=== PATIENT | male | born 1995 | race Caucasian/White ===

== ENCOUNTER 2019-07-04 19:49 | Inpatient (IN) | payer OTHER ==
[~2019-07-04] VITALS: Ht 175.3 cm; Wt 90.6 kg
[2019-07-04 20:54] LABS: HEMATOCRIT 44.3 % (42.0-52.0); HEMOGLOBIN 15.5 g/dl (13.5-17.5); MEAN CORPUSCULAR HEMOGLOBIN 31.1 pg (27.0-33.0); PLATELET COUNT, AUTOMATED 297 10^3/uL (150-450); RED BLOOD COUNT 4.98 10^6/uL (4.30-6.10); WHITE BLOOD COUNT 6.6 10^3/uL (4.0-10.0)
[2019-07-04 21:37] LABS: ACETAMINOPHEN LEVEL < 2.0 UG/ML (10.0-30.0); ALBUMIN 4.1 GM/DL (3.2-5.2); ALT/SGPT 36 U/L (12-78); BILIRUBIN,DIRECT 0.1 MG/DL (0.0-0.2); BILIRUBIN,TOTAL 0.4 MG/DL (0.2-1.0); BLOOD UREA NITROGEN 18 MG/DL (7-18); CALCIUM LEVEL 8.5 MG/DL (8.5-10.1); CARBON DIOXIDE LEVEL 25 MEQ/L (21-32); CHLORIDE LEVEL 107 MEQ/L (98-107); CREATININE FOR GFR 1.11 MG/DL (0.70-1.30); ETHYL ALCOHOL (ETHANOL) < 0.003 % (0.000-0.010); GLOMERULAR FILTRATION RATE > 60.0 (>60); GLUCOSE, FASTING 96 MG/DL (70-100); POTASSIUM SERUM 3.9 MEQ/L (3.5-5.1); SALICYLATE LEVEL < 1.7 MG/DL (5.0-30.0); SODIUM LEVEL 139 MEQ/L (136-145); TOTAL PROTEIN 7.2 GM/DL (6.4-8.2)
[2019-07-04 21:41] LABS: AMPHETAMINES LEVEL URINE NEGATIVE (NEGATIVE); BARBITURATES URINE NEGATIVE (NEGATIVE); BENZODIAZEPINES URINE NEGATIVE (NEGATIVE); CANNABINOIDS URINE NEGATIVE (NEGATIVE); COCAINE METABOLITE URINE NEGATIVE (NEGATIVE); METHADONE URINE NEGATIVE (NEGATIVE); OPIATES URINE NEGATIVE (NEGATIVE); PHENCYCLIDINE URINE NEGATIVE (NEGATIVE)
[2019-07-05] MEDS ORDERED: MOM 30ML SUSPENSION UDC PO PRN (01:00)
[2019-07-05] MEDS ORDERED: OLANZapine ORAL DISINTEGRATING TAB 5MG PO PRN (01:00)
[2019-07-05] MEDS ORDERED: MAALOX 30 ML SUSP *UDC PO PRN (01:00)
[2019-07-05] MEDS ORDERED: LORazepam 2 MG TAB PO PRN (01:00)
[2019-07-05] MEDS ORDERED: traZODone 50 MG TAB PO PRN (01:00)
[2019-07-05 01:34] VITALS: BP 129/77
[2019-07-05] MEDS: THIAMINE 100 MG TAB PO SCH ×3 (02:01→21:38)
[2019-07-05 06:56] VITALS: BP 129/63
[2019-07-05] MEDS: MULTIVITAMINS/MINERALS THERAP 1 TAB PO SCH (09:30)
[2019-07-05] MEDS: FOLIC ACID 1 MG TAB PO SCH (09:30)
[2019-07-05] MEDS: NICOTINE 14 MG/24 HR TRANSDERMAL TD SCH (09:31)
--- NOTE | 2019-07-05 09:44 | MHHPEPDOC ---
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 The patient self-presented he had reportedly presented to [place] in order to be deployed, however, it appears he had second thoughts about this and reported having a depressed mood and hopelessness upon presentation to our emergency room. When I met with the patient he was unable to describe any significant symptoms of vague "depression" and "nightmares". He has a history of having a friend who committed suicide several months ago, that had been a stressor, but he is unable to engage in a more comprehensive review of symptoms as it appears that he ge nerally states "depression" to the majority of my questions. Review Of Systems Depression: As above. Anxiety: The patient denies any excessive worry associated with physical symptoms. They deny any experience of discreet panic in the past. Ann: The patient denies any episodes of euphoria/dysphoria associated with decreased need for sleep, hedonism, talkatively or impulsivity lasting longer th an 5 days. Psychotic: The patient denies any experiences of auditory or visual hallucinations. They deny any episodes of paranoia or delusional thinking in the past Trauma: The patient denies any traumatic events associated with nightmares or intrusive thoughts. Borderline: Not screened. Past Psychiatric History Denies any history of suicide attempts. Allergies Please see below. Family Psychiatric History Reportedly the patient's father had substance abuse problems and by suicide. 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 He has never been deployed recently transferred here in order to deploy at his own request. The patient has been in the [employer] for 18 months with no reported cumulative actions against him. He has known his current for 6 months romantically, but have known of each other in general for 6 years. He has no legal history. Substance Abuse History The patient denies any excessive alcohol use, tobacco or illicit drug use, denies history of substance use treatment. Medical History Patient has no significant past medical history. Mental Status Examination General: Well dressed with good hygiene Speech: Spontaneous and fluid Thought processes: Linear and logical MSK: Smooth and coordinated gait, no signs of tremors or involuntary orofacial movements Thought content: Generally focused on not being deployed Abstract reasoning, and computation: Intact Description of associations: Intact Description of abnormal or psychotic thoughts: Denies any suicidal or homicidal ideation. Denies any auditory or visual hallucinations. Does not appear to be responding to internal stimuli. Does not appear to be endorsing any bizarre or paranoid ideation. Judgment: Limited change. Insight: Limited, likely chronic. Orientation: Alert and orientated 3 Cognition: Grossly normal Recent and remote memory: Intact Attention span and concentration: Intact Fund of knowledge: Adequate Mood: "okay" Affect: Reactive Diagnoses Unspecified depressive disorder Adjustment versus fabrication Strong concerned for malingering Assessment and Plan Unspecified depressive disorder: Patient was discussed with the risks, benefits and potential side effects of medication as well as alternative options, patient elected for sertraline 25 mg we will start, observation will elucidate whether adjustment versus fabrication. Concerned for malingering: Patient's interview and information are concerning for an individual trying to avoid being deployed. We will continue to monitor to determine if reported behavior and observed behavior are consistent or i nconsistent. Disposition The patient will be continued on a voluntary admission at this time for further treatment of his depression and monitoring of safety. Problem List 1. Risk for suicide. 2. Depression. 3. Ineffective coping. Initial Treatment Plan 1. Patient was admitted on a 9.13 legal status. 2. Complete history was obtained. 3. With patients permission, family will be contacted and database will be expanded. 4. Patients medication regimen will be reviewed and changed accordingly. 5. Patient will be provided with protected environment. 6. Patient will be treated with individual, group, and milieu therapies. 7. Patient will receive supportive psych-education. 8. Discharge planning will commence immediately. 9. Outpatient follow-up treatment will be strongly recommended. 10. The initial treatment plan will focus initially on: Estimated Length Of Stay 3 days. Time Spent 70 minutes with greater than 50% of time on counseling/coordination of care. Vital Signs Vital Signs Date Time Temp Pulse Resp B/P (MAP) Pulse Ox O2 Delivery O2 Flow Rate FiO2 07/05/19 06:56 98.1 102 12 129/63 (85) 07/04/19 23:55 98 Room Air Laboratory Data 24H Labs Laboratory Tests 2 07/04/19 20:38: Nucleated Red Blood Cells % (auto) 0.0, Anion Gap 7L, Glomerular Filtration Rate > 60.0, Calcium Level 8.5, Total Bilirubin 0.4, Direct Bilirubin 0.1, Aspartate Amino Transf (AST/SGOT) 31, Alanine Aminotransferase (ALT/SGPT) 36, Alkaline Phosphatase 73, Total Protein 7.2, Albumin 4.1, Albumin/Globulin Ratio 1.32, Thyroid Stimulating Hormone (TSH) 2.220, Salicylates Level < 1.7L, Urine Opiates Screen NEGATIVE, Urine Methadone Screen NEGATIVE, Acetaminophen Level < 2.0L, Urine Barbiturates Screen NEGATIVE, Urine Phencyclidine Screen NEGATIVE, Urine Amphetamines Screen NEGATIVE, Urine Benzodiazepines Screen NEGATIVE, Urine Cocaine Metabolite Screen NEGATIVE, Urine Cannabinoids Screen NEGATIVE, Ethyl Alcohol Level < 0.003 CBC/BMP Laboratory Tests 07/04/19 20:38 Medications No Active Prescriptions or Reported Meds Allergies Coded Allergies: No Known Allergies (Unverified , 07/04/19) NAHED HENSON DO Jul 05, 2019 09:44
[2019-07-05] MEDS ORDERED: SERTRALINE HCL 25 MG TABLET PO ONE (10:00)
[2019-07-05 16:00] VITALS: BP 155/65
[2019-07-05 20:58] VITALS: BP 147/80
[2019-07-05 20:59] VITALS: BP 147/80
--- NOTE | 2019-07-05 21:47 | HPE ---
DATE OF ADMISSION: 07/05/2019 TIME: 6:00 p.m. CHIEF COMPLAINT: Medical evaluation of inpatient psychiatric patient. 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 He is an active smoker, otherwise he has no significant medical history. At this point and time, he is only complaining of dyspnea at times. When we checked his oxygen saturation, he was 99% on room air. ALLERGIES: No known drug allergies. Medication list has been reviewed in the electronic record. PAST MEDICAL HISTORY: Nil. SURGICAL HISTORY: Notable for wisdom teeth extraction. SOCIAL HISTORY: He is , smokes cigarettes, and uses alcohol. 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 would be his surrogate medical decision maker. He is a [employer]. FAMILY HISTORY: Notable for diabetes and gout in his mom. REVIEW OF SYSTEMS: 12 systems reviewed, patient is otherwise negative except what is mentioned in history of present illness (HPI). On examination, patient's temperature is 99.2, pulse is 89, respiratory rate 18, blood pressure 125/65. General: Mr. Vergara is a healthy appearing gentleman who appears in no acute distress. His skin is intact and warm to touch. Head is atraumatic, normocephalic. Pupils are equal, round, and reactive to light. Oropharynx is clear without exudate, erythema, or thrush. Neck is supple. Lung sounds are present bilaterally without wheezes, rales, or rhonchi. Heart is S1, S2, no murmurs, rubs, or gallops. Abdomen is soft, nontender, nondistended with active bowel sounds. Extremities without any cyanosis, clubbing, or edema. RELEVANT LABORATORIES: White count 6.6, hemoglobin 15.5, hematocrit 44.3, platelet count 297, sodium 139, potassium 3.9, chloride 107, bicarbonate 25, BUN 18, creatinine 1.1, glucose 96, calcium 8.5, AST 31, ALT 73, alkaline phosphatase 73, albumin 4.1, TSH 2.2. Salicylates are less than 1.7. Acetaminophen is less than 2. Alcohol level less than 0.003. Urine drug screen is negative. IMPRESSION: 1. Normal male physical exam. 2. Shortness of breath. 3. Tobacco use. RECOMMENDATIONS: I will get a chest x-ray, two views, to further investigate his complaints of dyspnea. Should it be negative for any structural lung disease then I would recommend he get a pulmonary function test in the outpatient setting, as well as I have spoken to him about ceasing tobacco use. Psychiatric treatment per the psychiatric service. Thank you for allowing us to involve ourselves in the care of this patient. I will sign off.
[2019-07-06 06:38] VITALS: BP 128/62
[2019-07-06 06:39] VITALS: BP 128/62
--- NOTE | 2019-07-06 07:52 | REP ---
PA and lateral chest: There are no comparisons. The lung wick are clear. The cardiac size is normal. The scotty, mediastinum, and skeletal structures are unremarkable. Impression: Negative PA and lateral chest. Electronically Signed by Poncho Em MD 07/06/2019 07:44 A
--- NOTE | 2019-07-06 08:49 | MHIPNPDOC ---
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 The patient self-presented he had reportedly presented to [facility] in order to be deployed, however, it appears he had second thoughts about this and reported having a depressed mood and hopelessness upon presentation to our emergency room. When I met with the patient he was unable to describe any significant symptoms of vague "depression" and "nightmares". He has a history of having a friend who committed suicide several months ago, that had been a stressor, but he is unable to engage in a more comprehensive review of symptoms as it appears that he generally states "depression" to the majority of my questions. Interval History Narrative: The patient is met within the group setting. He reports doing much better, had a good call with his chain of command. Affective: The patient denies any depressive symptoms at this time. Psychotic: The patient denies any symptoms at this time. Anxiety: The patient reports much improved situational anxiety. Eating and sleeping behaviors: Within normal limits. Group Attendance: More frequent. Medication Side effects: See ROS below Behavioral problems/significant events overnight: None reported. Staff Report: The patient is brighter and more engaged on the unit. Review Of Systems General: Denies fever or appetite changes Cardiovascular: Denies Chest pain or palpations GI: Denies Nausea, vomiting, or bowel changes Respiratory: Denies shortness of breath or cough Neuro: Denies dizziness, tremors Derm: Denies any rashes or pruritus : Denies any dysuria or urinary problems MSK: Denies any muscle tightness or stiffness HEENT: Denies any vision changes or headaches Psychotherapy None on this visit. Vital Signs Reviewed. Mental Status Examination General: Well dressed with good hygiene Speech: Spontaneous and fluid Thought processes: Linear and logical MSK: Smooth and coordinated gait, no signs of tremors or involuntary orofacial movements Thought content: Future orientated Abstract reasoning, and computation: Intact Description of associations: Intact Description of abnormal or psychotic thoughts: Denies any suicidal or homicidal ideation. Denies any auditory or visual hallucinations. Does not appear to be responding to internal stimuli. Does not appear to be endorsing any bizarre or paranoid ideation. Judgment: fair Insight: fair Orientation: Alert and orientated 3 Cognition: Grossly normal Recent and remote memory: Intact Attention span and concentration: Intact Fund of knowledge: Adequate Mood: "okay" Affect: Euthymic with a full range Diagnoses Unspecified depressive disorder. Adjustment versus fabrication. Strong concerned for malingering. Assessment and Plan Unspecified depressive disorder: Continue sertraline 25 mg daily. Concerned for malingering: Patient's interview and information are concerning for an individual trying to avoid being deployed. We will continue to monitor to determine if reported behavior and observed behavior are consistent or inconsistent. Disposition Discharged to [facility] once [facility] reopens after inclement weather subsides. Time Spent 15 minutes. Vital Signs Vital Signs Date Time Temp Pulse Resp B/P (MAP) Pulse Ox O2 Delivery O2 Flow Rate FiO2 07/06/19 06:39 99.0 92 16 128/62 (84) 07/04/19 23:55 98 Room Air Current Medications Current Medications Medications (Trade) Dose Ordered Sig/Dyana Route PRN Reason Start Time Stop Time Status Last Admin Dose Admin Al Hydrox/Mg Hydrox/Simethicone (Mylanta) 30 ml Q4HP PRN PO HEARTBURN/INDIGESTION 07/05/19 01:00 Folic Acid (Folic Acid) 1 mg DAILY PO 07/05/19 09:00 07/05/19 09:30 Home Med (Med Rec Complete!) ASDIRECTED XX 07/04/19 21:45 07/04/19 21:48 DC Ibuprofen (Advil) 400 mg Q6HP PRN PO PAIN 07/05/19 01:00 Lorazepam (Ativan) 2 mg ASDIRECTED PRN PO SEE PROTOCOL 07/05/19 01:00 Magnesium Hydroxide (Milk Of Magnesia) 30 ml DAILYPRN PRN PO CONSTIPATION 07/05/19 01:00 Multivitamins (Theragram-M) 1 tab DAILY PO 07/05/19 09:00 07/05/19 09:30 Nicotine (Nicoderm Cq 14mg) 1 patch DAILY TD 07/05/19 09:00 07/05/19 09:31 Olanzapine (ZyPREXA ZYDIS) 5 mg Q6HP PRN PO AGITATION 07/05/19 01:00 Sertraline HCl (Zoloft) 25 mg DAILY PO 07/06/19 09:00 Thiamine HCl (Thiamine HCl) 100 mg BID PO 07/05/19 01:02 07/07/19 09:01 07/05/19 21:38 Trazodone HCl (Desyrel) 50 mg QHSP PRN PO INSOMNIA 07/05/19 01:00 Allergies Coded Allergies: No Known Allergies (Unverified , 07/04/19) NAHED HENSON DO Jul 06, 2019 08:49
[2019-07-06] MEDS: SERTRALINE HCL 25 MG TABLET PO SCH (10:03)
[2019-07-06] MEDS: MULTIVITAMINS/MINERALS THERAP 1 TAB PO SCH (10:03)
[2019-07-06] MEDS: THIAMINE 100 MG TAB PO SCH ×2 (10:03→20:00)
[2019-07-06] MEDS: FOLIC ACID 1 MG TAB PO SCH (10:03)
[2019-07-06] MEDS: NICOTINE 14 MG/24 HR TRANSDERMAL TD SCH (10:04)
[2019-07-06 14:23] VITALS: BP 130/70
[2019-07-06 18:05] VITALS: BP 141/64
[2019-07-06] MEDS: IBUPROFEN 400 MG TAB PO PRN (19:52)
[2019-07-06 19:58] VITALS: BP 140/94
[2019-07-06 19:59] VITALS: BP 140/94
[2019-07-07] MEDS: IBUPROFEN 400 MG TAB PO PRN (06:12)
[2019-07-07 06:20] VITALS: BP 152/67
[2019-07-07 06:29] VITALS: BP 152/67
[2019-07-07] MEDS: NICOTINE 14 MG/24 HR TRANSDERMAL TD SCH (09:00)
--- NOTE | 2019-07-07 09:14 | MHDSPDOC ---
[facility] Discharge Summary Discharge Summary DATE OF ADMISSION: Jul 05, 2019 at 00:52 DATE OF DISCHARGE: 07/07/19 Hal Vergara Discharge Hal Vergara Select Gender MRN: N/A Date of : MM/DD/YYYY Date of Service: 07/07/2019 Diagnoses Unspecified depressive disorder. Adjustment versus fabrication. Strong concerned for malingering. 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 The patient self-presented he had reportedly presented to [place] in order to be deployed, however, it appears he had second thoughts about this and reported having a depressed mood and hopelessness upon presentation to our emergency room. When I met with the patient he was unable to describe any significant symptoms of vague "depression" and "nightmares". He has a history of having a friend who committed suicide several months ago, that had been a stressor, but he is unable to engage in a more comprehensive review of symptoms as it appears that he generally states "depression" to the majority of my questions. Consultants Involved Hospitalist/PCP screening Treatment and Progress On The Unit The patient was admitted to the inpatient mental health unit. He was subsequently started on sertraline, after discussion of the risks and benefits given his presentation. He participated well, going to groups and engaged with our treatment team in order to work on his difficulties with his chain of command. Whether he has a depressive disorder is unclear, it appears to be highly likely to be either adjustment or fabrication, due to his generally normal mental status, amenability and lack of mental status signs consistent with major depressive disorder. He participates well and tolerates medications, subsequently requesting discharge after a period of observation. 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 The patient at the time of discharge did not meet criteria for involuntary admission/extension due to having a normal mental status exam, fair insight into the situation, They are engaged in the discharge process, as well as being friendly and amenable in behavioral control and havent been engaging in any observed concerning behavior or ideation recently. They decline voluntary extension/admission at this time and must be discharged in good el, as Im unable to make a case for holding the patient against their will. They may have historical risk factors of admissions and other interactions with psychiatry however, those are not modifiable from a clinical perspective. The patient will need to be discharged in good el. does well on a low dose of SSRI. Mental Status Examination General: Well dressed with good hygiene Speech: Spontaneous and fluid Thought processes: Linear and logical MSK: Smooth and coordinated gait, no signs of tremors or involuntary orofacial movements Thought content: Future orientated Abstract reasoning, and computation: Intact Description of associations: Intact Description of abnormal or psychotic thoughts: Denies any suicidal or homicidal ideation. Denies any auditory or visual hallucinations. Does not appear to be responding to internal stimuli. Does not appear to be endorsing any bizarre or paranoid ideation. Judgment: fair Insight: fair Orientation: Alert and orientated 3 Cognition: Grossly normal Recent and remote memory: Intact Attention span and concentration: Intact Fund of knowledge: Adequate Mood: "okay" Affect: Euthymic with a full range Follow Up The social work team worked during the predischarge meeting in order to evaluate for further issues of lethality address them fully before discharge. They worked on safety planning with the patient's family members in order to ensure that the patient will have a safe and effective discharge. Time Spent The amount of time spent in the coordination of care for this patient was approximately 50 minutes. Vital Signs/I&Os Vital Signs Date Time Temp Pulse Resp B/P (MAP) Pulse Ox O2 Delivery O2 Flow Rate FiO2 07/07/19 06:29 101.5 111 18 152/67 (95) 07/04/19 23:55 98 Room Air Medications Scheduled Nicotine (Nicotine Patch) 14 Mg Patch.td24, 1 PATCH TD DAILY for tobacco for 30 Days, #30 Sertraline HCl (Sertraline HCl) 25 Mg Tablet, 25 MG PO DAILY for mood for 7 Days, #7 Allergies Coded Allergies: No Known Allergies (Unverified , 07/04/19) NAHED HENSON DO Jul 07, 2019 09:14
[2019-07-07] MEDS ORDERED: NICO14PA TD (09:15)
[2019-07-07] MEDS ORDERED: SERT25TA21 PO (09:15)
[2019-07-07] MEDS: SERTRALINE HCL 25 MG TABLET PO SCH (09:45)
[2019-07-07] MEDS: THIAMINE 100 MG TAB PO SCH (09:45)
[2019-07-07] MEDS: FOLIC ACID 1 MG TAB PO SCH (09:45)
[2019-07-07] MEDS: MULTIVITAMINS/MINERALS THERAP 1 TAB PO SCH (09:45)
== END 2019-07-07 11:00 | disposition home or self-care (01) | DRG 881 ==
LOC: M ED 19:49 → M ED INP 07-05 00:52 → M PSY 07-05 01:18
PROVIDERS: ADMIT Psychiatry & Neurology Psychiatry; ATTEND Psychiatry & Neurology Addiction Medicine
DX: F32.9 Major depressive disorder, single episode, unspecified (principal); Z76.5 Malingerer [conscious simulation]; F17.210 Nicotine dependence, cigarettes, uncomplicated

== ENCOUNTER 2020-08-18 10:56 | Emergency (ER) | payer OTHER ==
[~2020-08-18] VITALS: Ht 175.3 cm; Wt 96.3 kg
[~2020-08-18 10:56] MED LIST: NICO14PA TD; SERT25TA21 PO
--- NOTE | 2020-08-18 11:32 | REP ---
INDICATION: TRAUMA/DEFORMITY COMPARISON: None. TECHNIQUE: Four views right hand. FINDINGS: There is a fracture of the distal shaft of the 5th metacarpal with anterior angulation. No other acute fracture or dislocation is seen. IMPRESSION: Fracture distal 5th metacarpal with anterior angulation. <Electronically signed by Poncho Medina > 08/18/20 1124
[2020-08-18] MEDS ORDERED: ACETAMINOPHEN 325 MG TAB PO ONE (13:00)
[2020-08-18 13:51] VITALS: BP 110/60
== END 2020-08-18 13:57 | disposition home or self-care (01) ==
LOC: M ED 10:56
DX: S62.306A Unspecified fracture of fifth metacarpal bone, right hand, initial encounter for closed fracture (principal); W22.8XXA Striking against or struck by other objects, initial encounter; Y92.019 Unspecified place in single-family (private) house as the place of occurrence of the external cause; Y93.9 Activity, unspecified; Y99.9 Unspecified external cause status; F17.200 Nicotine dependence, unspecified, uncomplicated